=== PATIENT | female | born 1965 | race Caucasian/White ===

== ENCOUNTER 2020-02-09 16:12 | Emergency (ER) | payer BC ==
[~2020-02-09] VITALS: Ht 182.9 cm; Wt 91.0 kg
[2020-02-09] MEDS ORDERED: SODIUM CHLORIDE 0.9% 1,000 ML IV NR (18:15)
[2020-02-09] MEDS ORDERED: MAGNESIUM/ALUMINUM HYDROXIDE/SIMETHICONE 30ML UDC PO NR (18:15)
[2020-02-09] MEDS ORDERED: FAMOTIDINE 20MG/2ML VIAL IV NR (18:15)
[2020-02-09 18:36] LABS: BASOPHILS % 0.8 % (0.0-2.0); EOSINOPHILS % 1.1 % (0.0-5.0); HEMATOCRIT. 33.4 % (36.0-48.0); HEMOGLOBIN. 11.9 g/dL (12.0-16.0); LYMPHOCYTES % 26.8 % (20.0-50.0); MEAN CORPUSCULAR HEMOGLOBIN 35.8 pg (28.0-32.0); MEAN CORPUSCULAR VOLUME 100.8 fL (81.0-99.0); MEAN PLATELET VOLUME 6.8 fl (7.4-10.4); MONOCYTES % 7.7 % (2.0-8.0); NEUTROPHILS % 63.6 % (40.0-76.0); PLATELET 304 x1000/uL (130-400); RED BLOOD CELL COUNT 3.32 mill/uL (4.2-5.4); RED CELL DISTRIBUTION WIDTH 12.5 % (11.6-14.6)
[2020-02-09 18:41] LABS: CHLORIDE 96 mEq/L (98-107)
[2020-02-09] MEDS ORDERED: IOHEXOL-350 100 ML BOTTLE ONE (21:51)
[2020-02-10 00:25] VITALS: BP 124/70
== END 2020-02-10 00:34 | disposition home or self-care (01) ==
LOC: ER 16:12
DX: R06.00 Dyspnea, unspecified (principal); M25.562 Pain in left knee; I10 Essential (primary) hypertension; Z98.890 Other specified postprocedural states; Z88.2 Allergy status to sulfonamides
CPT/HCPCS: 36415; 71045; 71275; 80053; 83880; 84484; 85025; 85379; 93005; 93970; 96361; 96374; 99285; J3490; Q9967